=== PATIENT | female | born 1965 | race Caucasian/White ===

== ENCOUNTER 2021-07-01 20:10 | Emergency (ER) | payer OTHER, SELFPAY ==
[2021-07-01 20:14] VITALS: BP 135/66; PULSE 108; RESP 22; O2SAT 97
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
[2021-07-01] MEDS: SODIUM CHLORIDE 0.9% 1,000 ML 1000 ML IV (22:39)
[2021-07-01] MEDS: KETOROLAC 30 MG/ML VIAL 15 MG IV (22:40)
[2021-07-01] MEDS: METOCLOPRAMIDE 10 MG/2 ML INJ IV (22:40)
[2021-07-01] MEDS: diphenhydrAMINE 50 MG/ML VIAL 25 MG IV (22:40)
[2021-07-01] MEDS: DEXAMETHASONE 10 MG/ML VIAL IV (22:40)
[2021-07-01] MEDS: HYDROMORPHONE 1 MG INJ IV (23:48)
[2021-07-02 00:22] VITALS: BP 109/64; PULSE 85; RESP 16; TEMP 36.9; O2SAT 98
== END 2021-07-02 00:38 | disposition home or self-care (01) ==
PROVIDERS: Emergency Provider Emergency Medicine
DX: R51.9 Headache, unspecified (principal)
CPT/HCPCS: 96361; 96374; 96375; 99283; 99284; J1100; J1170; J1200; J1885; J2765